=== PATIENT | female | born 2000 | race Caucasian/White ===

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

== ENCOUNTER 2020-10-03 20:35 | Emergency (ER) | payer OTHER ==
[~2020-10-03 20:35] MED LIST changes: +PHENERGAN 25 MG25 M1 PO; +ZOFRAN ODT 4 MG4 MG PO
[2020-10-03] MEDS ORDERED: TRANDATE 100 M100 MG PO (21:13)
== END 2020-10-03 23:10 | disposition home or self-care (01) ==
LOC: ER1 20:35
DX: I10 Essential (primary) hypertension (principal); Z76.0 Encounter for issue of repeat prescription
CPT/HCPCS: 99283

== ENCOUNTER → 2021-08-20 | Outpatient (CLI) | payer OTHER ==
[~2021-08-20] MED LIST changes: +TRANDATE 100 M100 MG PO
== END ==
LOC: RAD 11:32
DX: T83.39XA Other mechanical complication of intrauterine contraceptive device, initial encounter (principal)
CPT/HCPCS: 74018